=== PATIENT | female | born 1970 | race Two or more races ===

== ENCOUNTER 2025-09-05 10:00 | Day surgery (SDC) | payer OTHER ==
[2025-08-30 09:02] VITALS: BP 130/85
[2025-08-30 09:25] LABS: URINE APPEARANCE Clear; URINE BILIRRUBIN Negative (NEGATIVE); URINE BLOOD Negative; URINE COLOR Yellow; URINE GLUCOSE Negative (NEGATIVE); URINE KETONE Negative (NEGATIVE); URINE LEUKOCYTE Small; URINE NITRATE Negative; URINE PROTEIN Negative (NEGATIVE); URINE UROBILINOGEN 0.2 E.U./dl
[2025-08-30 09:31] LABS: URINE BACTERIA 323.9 uL (0.0-1933); URINE EPITHELIAL CELLS 19.8 uL (0.0-38.8); URINE RBC 2.9 uL (0.0-20.8); URINE WBC 30.8 uL (0.0-23.2)
[2025-08-30 09:34] LABS: INR 1.02; URINE CAST 0.00 uL (0.0-1.40)
[2025-08-30 09:35] LABS: BASO % 0.5 % (0.1-1.2); EOS # 0.05 (0.04-0.54); EOS % 0.9 % (0.7-7.0); LYMPH # 1.19 (1.18-3.74); LYMPH % 21.1 % (19.3-53.1); MEAN PLATELET VOLUME 9.10 fl (9.4-12.4); MONO # 0.53 (0.24-0.82); MONO % 9.4 % (4.7-12.5); NEUT # 3.81 (1.56-6.13); NEUT % 67.7 % (34.0-71.1); RED CELL DISTRIBUTION WIDTH 14.7 % (11.6-14.4)
[2025-08-30 10:40] LABS: ALT/SGPT 32.0 U/L (12-78); AST/SGOT 20.0 U/L (15-37); BILIRUBIN TOTAL 0.55 mg/dL (0.3-1.2); BUN CREA RATIO 14.0 (7.0-25.0); CREATININE SERUM 0.83 mg/dL (0.55-1.02); GFR 71.11; GLOBULINA 2.7 G/DL (2.4-3.5); GLUCOSE FASTING 98.0 mg/dL (65-100); OSMOLALITY SERUM 287.0 MOSM/KG (275-295)
[~2025-09-05] VITALS: Ht 157.5 cm; Wt 72.6 kg
[~2025-09-05 10:00] MED LIST: BUSPIRONE HCL15 MG PO; CANDESARTAN CILE8 M1 PO; CYMBALTA60 MG PO; LEVOTHYROXINE25 MCG PO; LYNPARZA150 MG PO; PRILOSEC OTC20 MG PO; PROTONIX20 MG PO
[2025-09-05] MEDS ORDERED: DEXAMETHASONE SODIUM PHOSPHATE 4 MG/ML VIAL ONE (11:27)
== END 2025-09-05 17:29 | disposition home or self-care (01) ==
LOC: O/R 10:00 → CIR.AMB 10:00 → SURH 10:00 → O/R 12:52 → SURH 15:57 → O/R 15:57 → SURH 17:15 → CIR.AMB 17:29 → SURH 17:29
PROVIDERS: ATTEND Surgery
DX: C73 Malignant neoplasm of thyroid gland (principal)